=== PATIENT | male | born 1970 | race Caucasian/White ===

== ENCOUNTER 2024-02-19 06:45 | Emergency (ER) | payer SELFPAY ==
[~2024-02-19] VITALS: Ht 165.1 cm; Wt 72.6 kg
[2024-02-19 07:00] VITALS: BP 187/115; PULSE 7; RESP 16; TEMP 98; O2SAT 97
[2024-02-19 07:30] LABS: BASOPHILS # (AUTO) 0.1 K/uL (0.00-0.22); BASOPHILS % (AUTO) 0.6 % (0.0-2.0); EOSINOPHILS # (AUTO) 0.5 K/uL (0-0.4); EOSINOPHILS % (AUTO) 4.4 % (0.0-4.0); HEMATOCRIT 44.3 % (36-52); LYMPHOCYTES # (AUTO) 1.7 K/uL (2.0-11.5); LYMPHOCYTES % (AUTO) 16.4 % (20.5-51.1); MEAN CORPUSCULAR HEMOGLOBIN 29 pg (27-31); MEAN CORPUSCULAR HGB CONC 34 g/dL (33-37); MEAN CORPUSCULAR VOLUME 86.8 fL (80-94); MONOCYTES # (AUTO) 0.7 K/uL (0.8-1.0); MONOCYTES % (AUTO) 6.9 % (1.7-9.3); NEUTROPHILS # (AUTO) 7.5 K/uL (1.8-7.7); NEUTROPHILS % (AUTO) 71.7 % (42.2-75.2); PLATELET COUNT (AUTO) 326 K/uL (140-450); RED BLOOD CELL COUNT(AUTO) 5.11 MIL/uL (4.20-6.10); WHITE BLOOD COUNT (AUTO) 10.5 K/uL (4.8-10.8)
[2024-02-19] MEDS: amLODIPine 5 MG TAB PO ONE (07:47)
[2024-02-19 07:49] LABS: INR 0.94 (0.8-1.2); PROTHROMBIN TIME 9.9 secs (10.8-13.4)
[2024-02-19 07:56] LABS: ANION GAP 13.4 (8-16); CALCIUM 8.2 mg/dL (8.5-10.1); CARBON DIOXIDE 27.2 mmol/L (21-32); CREATININE 0.7 mg/dL (0.6-1.3); POTASSIUM 3.6 mmol/L (3.5-5.1)
[2024-02-19 08:05] LABS: ALANINE AMINOTRANSFERASE 26 U/L (12-78); ALBUMIN 3.5 g/dL (3.4-5.0); ALKALINE PHOSPHATASE 97 U/L (50-136); ASPARTATE AMINOTRANSFERASE 20 U/L (15-37); BILIRUBIN,DIRECT 0.1 mg/dL (0.0-0.3); TOTAL BILIRUBIN 0.4 mg/dL (0.0-1.0); TOTAL PROTEIN, SERUM 7.1 g/dL (6.4-8.2)
[2024-02-19] MEDS: ENALAPRILAT 2.5 MG/2 ML VIAL IVP ONE (08:37)
[2024-02-19] MEDS: ACETAMINOPHEN EXTRA STRENGTH 500 MG TAB PO ONE (08:42)
[2024-02-19] MEDS: KETOROLAC 30 MG/ML VIAL IVP ONE (09:29)
[2024-02-19 10:03] VITALS: TEMP 97.6
[2024-02-19] MEDS ORDERED: MORPHINE SULFATE 4 MG/ML SYR ONE (11:32)
[2024-02-19] MEDS: MORPHINE SULFATE 4 MG/ML SYR IVP ONE (11:47)
[2024-02-19] MEDS ORDERED: AMOX1TAB8 PO (12:05)
[2024-02-19] MEDS ORDERED: LISI-487 PO (12:05)
[2024-02-19] MEDS ORDERED: MELO-176 PO (12:06)
[2024-02-19 13:01] VITALS: BP 143/78; PULSE 74; RESP 17; O2SAT 98
== END 2024-02-19 13:01 | disposition home or self-care (01) ==
LOC: MED 06:45
DX: R51.9 Headache, unspecified (principal); I10 Essential (primary) hypertension; Z79.899 Other long term (current) drug therapy
CPT/HCPCS: 36415; 70450; 71045; 80048; 80076; 83880; 84484; 85025; 85610; 85730; 93005; 96374; 96375; 99285; J1885; J2270; J3490

== ENCOUNTER 2024-08-01 04:05 | Emergency (ER) | payer SELFPAY ==
[~2024-08-01] VITALS: Ht 177.8 cm; Wt 77.1 kg
[~2024-08-01 04:05] MED LIST: AMOX1TAB8 PO; LISI-953 PO; MELO-176 PO
[2024-08-01 04:16] VITALS: BP 168/114; PULSE 67; RESP 25; TEMP 97; O2SAT 97
[2024-08-01] MEDS: NACL 0.9% 500 ML IV ONE (04:56)
[2024-08-01] MEDS: diphenhydrAMINE 50 MG/ML VIAL IVP ONE (04:59)
[2024-08-01] MEDS: MORPHINE SULFATE 4 MG/ML SYR IVP ONE (05:03)
[2024-08-01] MEDS: METOCLOPRAMIDE 10 MG/2 ML INJ VIAL IVP ONE (05:04)
[2024-08-01] MEDS ORDERED: LISI-951 PO (05:55)
[2024-08-01 07:21] VITALS: BP 147/102; PULSE 64; RESP 14; TEMP 97; O2SAT 99
== END 2024-08-01 07:20 | disposition home or self-care (01) ==
LOC: MED 04:05
DX: G43.909 Migraine, unspecified, not intractable, without status migrainosus (principal); I10 Essential (primary) hypertension; Z91.148 Patient's other noncompliance with medication regimen for other reason; Z79.899 Other long term (current) drug therapy
CPT/HCPCS: 70450; 96361; 96374; 96375; 99285; J1200; J2270; J2765; J7030